=== PATIENT | male | born 1945 | race Native Hawaiian/Other Pacific Islander ===

== ENCOUNTER 2017-05-13 07:48 | Outpatient (CLI) | payer OTHER, BC ==
[2017-05-13 08:43] LABS: PLATELET COUNT 221 K/uL (142-355)
[2017-05-13 08:56] LABS: POTASSIUM 4.3 mmol/L (3.6-5.2)
== END 2017-05-13 09:00 | disposition home or self-care (01) ==
LOC: LABW 07:48
PROVIDERS: Nurse Practitioner
DX: I10 Essential (primary) hypertension (principal); E78.00 Pure hypercholesterolemia, unspecified; Z12.5 Encounter for screening for malignant neoplasm of prostate; E55.9 Vitamin D deficiency, unspecified
CPT/HCPCS: 36415; 80053; 80061; 82306; 84443; 85027; G0103

== ENCOUNTER 2018-05-27 08:07 | Outpatient (CLI) | payer OTHER, BC ==
[2018-05-27 08:47] LABS: PLATELET COUNT 202 K/uL (142-355)
[2018-05-27 09:12] LABS: POTASSIUM 4.1 mmol/L (3.6-5.2); SODIUM 142 mmol/L (136-145)
== END 2018-05-27 22:47 | disposition home or self-care (01) ==
LOC: LABW 08:07
PROVIDERS: Nurse Practitioner
DX: I10 Essential (primary) hypertension (principal); E78.00 Pure hypercholesterolemia, unspecified; Z13.1 Encounter for screening for diabetes mellitus; Z79.899 Other long term (current) drug therapy; E55.9 Vitamin D deficiency, unspecified; R53.82 Chronic fatigue, unspecified; Z85.46 Personal history of malignant neoplasm of prostate
CPT/HCPCS: 36415; 80053; 80061; 82306; 83036; 84153; 85027; 86803

== ENCOUNTER 2019-04-06 08:17 | Outpatient (CLI) | payer OTHER, BC ==
[2019-04-06 09:09] LABS: POTASSIUM 4.3 mmol/L (3.6-5.2); SODIUM 143 mmol/L (136-145)
[2019-04-06 10:20] LABS: PLATELET COUNT 212 K/uL (142-355)
== END 2019-04-06 20:48 | disposition home or self-care (01) ==
LOC: LABW 08:17
PROVIDERS: Internal Medicine
DX: I10 Essential (primary) hypertension (principal); E78.00 Pure hypercholesterolemia, unspecified; C61 Malignant neoplasm of prostate; E55.9 Vitamin D deficiency, unspecified; R82.998 Other abnormal findings in urine
CPT/HCPCS: 36415; 80053; 80061; 81000; 82306; 84153; 84439; 84443; 85027; 87088

== ENCOUNTER 2020-04-18 17:44 | Outpatient (CLI) | payer OTHER, BC ==
[2020-04-18 18:44] LABS: PLATELET COUNT 193 K/uL (142-355)
[2020-04-18 19:14] LABS: POTASSIUM 4.7 mmol/L (3.6-5.2); SODIUM 144 mmol/L (136-145)
== END 2020-04-18 18:57 | disposition home or self-care (01) ==
LOC: LAB 17:44
PROVIDERS: ATTEND Internal Medicine
DX: Z00.00 Encounter for general adult medical examination without abnormal findings (principal); Z85.46 Personal history of malignant neoplasm of prostate; Z79.899 Other long term (current) drug therapy
CPT/HCPCS: 80053; 80061; 81000; 84153; 84439; 84443; 85027

== ENCOUNTER 2021-03-21 14:00 | Outpatient (CLI) | payer BC ==
[2021-03-21 14:31] LABS: PLATELET COUNT 185 K/uL (142-355)
[2021-03-21 15:09] LABS: POTASSIUM 4.1 mmol/L (3.6-5.2)
== END 2021-03-21 20:26 | disposition home or self-care (01) ==
LOC: LAB 14:00
PROVIDERS: ATTEND Internal Medicine
DX: I10 Essential (primary) hypertension (principal); E78.2 Mixed hyperlipidemia; C61 Malignant neoplasm of prostate
CPT/HCPCS: 80053; 80061; 81000; 84153; 84439; 84443; 85027

== ENCOUNTER 2021-07-19 17:17 | Outpatient (CLI) | payer BC ==
[2021-07-19 17:53] LABS: PLATELET COUNT 221 K/uL (142-355)
[2021-07-19 18:13] LABS: POTASSIUM 4.4 mmol/L (3.6-5.2); SODIUM 144 mmol/L (136-145)
== END 2021-07-19 20:03 | disposition home or self-care (01) ==
LOC: LAB 17:17
PROVIDERS: ATTEND Internal Medicine
DX: Z00.00 Encounter for general adult medical examination without abnormal findings (principal); Z12.5 Encounter for screening for malignant neoplasm of prostate; Z85.46 Personal history of malignant neoplasm of prostate; Z79.899 Other long term (current) drug therapy; Z08 Encounter for follow-up examination after completed treatment for malignant neoplasm
CPT/HCPCS: 80053; 80061; 81000; 84153; 84439; 84443; 85027

== ENCOUNTER 2022-08-05 09:35 | Outpatient (CLI) | payer BC | END 2022-08-05 19:00 | disposition home or self-care (01) | LOC: RAD 09:35 | PROVIDERS: ATTEND Internal Medicine | DX: M54.16 Radiculopathy, lumbar region (principal) ==